=== PATIENT | female | born 2000 | race Caucasian/White ===

== ENCOUNTER 2023-06-14 15:45 | Outpatient (CLI) | payer OTHER, SELFPAY ==
--- NOTE | 2023-06-14 16:00 | CRLHL7_ITS ---
For Patients: As a result of the Cures Act, medical imaging exams and procedure reports are released immediately into your electronic medical record. You may view this report before your referring provider. If you have questions, please contact your health care provider. INDICATION: First trimester scan, establish dates. COMPARISON: None. TECHNIQUE: Real-time york-scale imaging of the pelvis was performed. FINDINGS: Sonographic imaging demonstrates a single living intrauterine gestation. The embryo demonstrates a regular cardiac rate measuring 173 beats per minute. The embryo`s crown-rump length measurement of 3.2 cm corresponds to a gestational age of 10 weeks 1 day with a sonographic due date of 01/09/2024. The yolk sac is not visualized. There are no gross abnormalities noted within the embryo at this early state of development. The gestational sac has a normal appearance. There is no evidence of a perigestational hemorrhage. The amount of fluid within the sac appears appropriate for gestational age. The cervix is closed. The myometrium appears normal. The ovaries are of normal size. There are no suspicious fluid collections noted in the cul-de-sac. IMPRESSION: Normal first trimester OB ultrasound exam. Gestational age calculated at 10 weeks 1 day with a sonographic due date of 01/09/2024. Dictated by Main Escalona MD @ 06/15/2023 9:20:32 AM (Electronically Signed)
== END 2023-06-14 15:46 | disposition home or self-care (01) ==
PROVIDERS: PCP Pediatrics; Visit Provider Registered Nurse
DX: Z34.91 Encounter for supervision of normal pregnancy, unspecified, first trimester (principal); Z3A.10 10 weeks gestation of pregnancy
CPT/HCPCS: 76817; 86592; 86703; 86704; 86706; 86762; 86787; 86803; 86850; 86900; 86901; 87086; 87340; 87491; 87591

== ENCOUNTER 2023-06-14 16:58 | Outpatient (CLI) | payer OTHER, SELFPAY ==
[2023-06-15 00:22] LABS: Chlamydia DNA Amplified* NOT DETECTED (No Detected); GC DNA Amplified* NOT DETECTED (No Detected)
== END 2023-06-14 16:59 | disposition home or self-care (01) ==
PROVIDERS: PCP Pediatrics; Visit Provider Registered Nurse
DX: Z34.91 Encounter for supervision of normal pregnancy, unspecified, first trimester (principal); Z3A.09 9 weeks gestation of pregnancy
CPT/HCPCS: 86592; 86703; 86704; 86706; 86762; 86787; 86803; 86850; 86900; 86901; 87086; 87340; 87491; 87591

== ENCOUNTER 2023-08-09 15:46 | Outpatient (CLI) | payer OTHER, SELFPAY | END 2023-08-09 15:47 | disposition home or self-care (01) | LOC: NFLDREF 15:48 | PROVIDERS: PCP Pediatrics; Visit Provider Advanced Practice Midwife | DX: Z34.92 Encounter for supervision of normal pregnancy, unspecified, second trimester (principal); Z3A.17 17 weeks gestation of pregnancy | CPT/HCPCS: 81511 ==

== ENCOUNTER 2023-08-30 11:06 | Outpatient (CLI) | payer OTHER, SELFPAY ==
--- NOTE | 2023-08-30 11:00 | US_ITS ---
Patient: CELE DIAZ Facility:?[facility] Patient ID:?[id number] Site Patient ID:?[id number]. Site :?[id number] Study:?US-OB Pelvis OB > 14wks-08/30/2023 12:47:59 PM Ordering Physician:Anastasiia Kidd Final Report: INDICATION: Evaluate anatomy. COMPARISON: Obstetric ultrasound on 06/15/2023 TECHNIQUE: Real time york scale imaging of the fetus was performed as well as color Doppler analysis of the umbilical vessels. FINDINGS: Sonographic imaging demonstrates a single living intrauterine gestation. Fetus demonstrates a regular cardiac rate of 144 beats per minute. Fetus has a cephalic presentation. The placenta lies posterior without evidence of placenta previa. Amniotic fluid volume appears normal. Single deepest vertical pocket: 4.9 cm. The cervix is closed and measures 4.2 cm in length. The composite ultrasound gestational age is calculated at 21 weeks and 4 days with an estimated sonographic due date of 01/06/2024. The estimated weight is 462 grams which lies at the 96 percentile The following biometric measurements were obtained: Biparietal diameter: 5.2 cm/21 weeks and 6 days 87% Head circumference: 18.5 cm/20 weeks and 6 days 45% Abdominal circumference: 17.8 cm/22 weeks and 5 days 94% Femur length: 3.6 cm/21 weeks and 2 days 61% The HC/AC ratio measures: 1.04 On anatomic survey, there is a normal appearance of the cerebral ventricles, cavum septi pellucidi, cisterna magna and cerebellum. The nose, lips, and facial profile appear normal. The cervical, thoracic and lumbar spine are well visualized and appear normal. There is a normal four-chamber heart view and the left and right ventricular outflow tracts appear normal. The diaphragm and stomach appear normal. The kidneys and bladder also appear normal. There is a normal three-vessel cord and cord insertion site. The four extremities appear normal. IMPRESSION: Normal OB ultrasound exam with estimated gestational age of 21 weeks and 4 days with estimated delivery date of 01/06/2024. No intrinsic abnormalities noted on anatomic survey. Dictated by Wilian Cordero MD @ 08/30/2023 5:43:08 PM Signed by:?Wilian Cordero MD @08/30/2023 5:43:08 PM (Electronic Signature)
== END 2023-08-30 11:07 | disposition home or self-care (01) ==
LOC: US 11:06
PROVIDERS: PCP Pediatrics; Visit Provider Advanced Practice Midwife
DX: Z34.92 Encounter for supervision of normal pregnancy, unspecified, second trimester (principal); Z3A.21 21 weeks gestation of pregnancy
CPT/HCPCS: 76805

== ENCOUNTER 2023-10-25 17:45 | Outpatient (CLI) | payer OTHER, SELFPAY | END 2023-10-25 17:46 | disposition home or self-care (01) | LOC: NFLDREF 11-10 04:01 | PROVIDERS: PCP Pediatrics; Referring Provider Pediatrics; Visit Provider Advanced Practice Midwife | DX: Z34.03 Encounter for supervision of normal first pregnancy, third trimester (principal) | CPT/HCPCS: 86592 ==

== ENCOUNTER 2023-12-05 14:35 | Outpatient (CLI) | payer OTHER, SELFPAY | END 2023-12-05 14:36 | disposition home or self-care (01) | LOC: NFLDREF 12-07 18:37 | PROVIDERS: PCP Pediatrics; Referring Provider Pediatrics; Visit Provider Advanced Practice Midwife | DX: Z34.93 Encounter for supervision of normal pregnancy, unspecified, third trimester (principal) | CPT/HCPCS: 82728 ==

== ENCOUNTER 2023-12-21 13:00 | Outpatient (RCR) | payer OTHER, SELFPAY ==
--- NOTE | 2023-12-08 11:11 | URNOTE ---
Prior auth is not required for Joshua ([id number]).Per [facility]
[2023-12-09] MEDS: SODIUM CHLORIDE 0.9 % (FLUSH) 10 ML SYRINGE IVF (13:30)
[2023-12-09] MEDS: 0.9 % SODIUM CHLORIDE 250 ml IV (13:30)
[2023-12-09 13:31] VITALS: BP 113/71; PULSE 97; RESP 16; TEMP 36.6; O2SAT 97
[2023-12-09] MEDS: IRON SUCROSE COMPLEX 200 MG in 0.9 % SODIUM CHLORIDE 100 ml 440 MG IVPB (13:57)
[2023-12-09 14:19] VITALS: BP 110/72; PULSE 85; RESP 14; TEMP 36.6; O2SAT 97
[2023-12-12] MEDS: SODIUM CHLORIDE 0.9 % (FLUSH) 10 ML SYRINGE IVF (09:10)
[2023-12-12] MEDS: 0.9 % SODIUM CHLORIDE 250 ml IV (09:10)
[2023-12-12] MEDS: IRON SUCROSE COMPLEX 200 MG in 0.9 % SODIUM CHLORIDE 100 ml 440 MG IVPB (09:10)
[2023-12-12 09:11] VITALS: BP 104/62; PULSE 94; RESP 18; TEMP 36.1; O2SAT 98
[2023-12-12 09:28] VITALS: BP 106/69; PULSE 100; RESP 16; O2SAT 97
[2023-12-12 09:57] VITALS: BP 103/66; PULSE 95; RESP 16; O2SAT 99
[2023-12-14] MEDS: SODIUM CHLORIDE 0.9 % (FLUSH) 10 ML SYRINGE IVF (08:59)
[2023-12-14] MEDS: 0.9 % SODIUM CHLORIDE 250 ml IV (08:59)
[2023-12-14] MEDS: IRON SUCROSE COMPLEX 200 MG in 0.9 % SODIUM CHLORIDE 100 ml 440 MG IVPB (08:59)
[2023-12-14 09:18] VITALS: BP 112/71; PULSE 85; RESP 16; O2SAT 96
[2023-12-14 09:52] VITALS: BP 125/73; PULSE 90; RESP 18; O2SAT 97
[2023-12-19 13:14] VITALS: BP 108/69; PULSE 78; RESP 16; TEMP 36.4; O2SAT 99
[2023-12-19] MEDS: IRON SUCROSE COMPLEX 200 MG in 0.9 % SODIUM CHLORIDE 100 ml 440 MG IVPB (13:34)
[2023-12-19] MEDS: 0.9 % SODIUM CHLORIDE 250 ml IV (13:35)
[2023-12-19 13:51] VITALS: BP 100/60; PULSE 84; RESP 16; TEMP 36.7; O2SAT 99
[2023-12-19 14:15] VITALS: BP 105/65; PULSE 72; RESP 16; TEMP 36.4; O2SAT 98
[2023-12-21 13:09] VITALS: BP 112/70; PULSE 78; TEMP 35.6; O2SAT 98
[2023-12-21] MEDS: IRON SUCROSE COMPLEX 200 MG in 0.9 % SODIUM CHLORIDE 100 ml 440 MG IVPB (13:40)
[2023-12-21] MEDS: 0.9 % SODIUM CHLORIDE 250 ml IV (13:40)
[2023-12-21 14:05] VITALS: BP 116/65; PULSE 76; RESP 16; O2SAT 96
[2023-12-21 14:40] VITALS: BP 110/63; PULSE 75; RESP 14; O2SAT 97
== END 2024-06-06 23:59 | disposition home or self-care (01) ==
LOC: CCIC 13:00
PROVIDERS: PCP Pediatrics; Referring Provider Pediatrics; Visit Provider Pediatrics
DX: D50.9 Iron deficiency anemia, unspecified (principal)
CPT/HCPCS: 87081; 87653; 96365; 96374; J1756; J7050

== ENCOUNTER 2023-12-31 20:18 | Inpatient (IN) | payer OTHER, SELFPAY ==
[2023-12-31] VITALS (67 sets, daily range): BP systolic 91–140; BP diastolic 49–79; PULSE 60–126; RESP 12; TEMP 36.8; O2SAT 93–100; BMI 34.5
--- NOTE | 2023-12-31 14:03 | W.PM.LDBA ---
Subjective History of Present Illness Narrative: Jennifer is a 23 yo at 38 2/7 weeks gestation being admitted to Labor and Delivery for spontaneous onset of labor. She reports she started having contractions last evening before bed. She was able to sleep some but they progressively got more uncomfortable throughout the night. She was able to try to rest and change positions to manage them at home. Then about lunch time they became more regular, about every 5 minutes apart. She denies any leaking of fluid or bleeding. She feels she is coping well a this time. She is supported in labor by her partner, Edgard. Her full history and physical was dictated by Katherine Eagle CNM on 12/27/2023. Please see this for details. Specific Issues/Plans G 1 P 0 Fiance: Edgard H&P done by Katherine Eagle CNM on 12/27/23 No OB problems Quad screening- normal Flu: Recommended, declined Covid: Recommended, declined TDAP: 11/21/2023 OB - Problem Based A/P Additional Plan (1) Pain during labor: Status: Acute (2) Spontaneous onset of labor: Status: Acute (3) 38 weeks gestation of : Status: Acute Plan ASSESSMENT:? 23 yo at 38 2/7 weeks gestation? complicated by:?none Labor type: Spontaneous, Early labor? Category 1 FHR pattern.?? Labor complicated by: none? GBS negative? ? PLAN:? 1. Routine intrapartum cares as ordered. Continue with expectant management? 2. Monitoring per policy, intermittent? 3. Planning epidural for pain management. Doesn't feel ready at this time. Candidate for analgesia of choice when desired.?? 4. Patient encouraged to reposition and ambulate to promote physiologic labor and .? 5. Anticipate ? Delivery/Labor/Induction Plan Plan: expectant management OB Exam Physical Exam Vital signs: Pulse BP Pulse Ox 100 117/76 98 12/31/23 13:18 12/31/23 13:18 12/31/23 13:19 Narrative: Vitals Reviewed Constitutional:? Alert and oriented x3 HEENT:? Normocephalic, atraumatic Neck:? Supple Lungs:? Clear to auscultation bilaterally Heart:? Regular rate and rhythm, no murmur, rub or gallop Abdomen:? Soft, nontender, and gravid. Vertex by Lyndon's, confirmed with cervical exam. Extremities:? No edema or erythema Cervix: 4 cm/80%/0 station/vertex NST: 130 bpm/moderate variability/15x15 accelerations/no decelerations/contractions every 3-5 minutes Detailed Labor and Delivery Exam Patient Gravid: Yes
[2023-12-31 14:27] LABS: Basophils Percent Auto 0.2 % (0.0-3.0); Eosinophils Percent Auto 0.2 % (0.0-7.0); Hematocrit 38.2 % (33.0-51.0); Hemoglobin* 12.1 gm/dL (12.0-16.0); Immature Granulocytes Pct Auto 2.5 %; Lymphocytes Percent Auto 9.5 % (20-44); Mean Corpuscular HGB Conc 32 gm/dL (32-36); Mean Corpuscular Hemoglobin 29 pg (26-34); Mean Corpuscular Volume 92 fL (80-100); Monocytes Percent Auto 6.7 % (0.0-11.0); Neutrophils Percent Auto 80.9 % (42.0-72.0); Platelet Count* 210 K/uL (140-440); RDW Coefficient of Variation % 17.2 % (11.5-15.5); Red Blood Count 4.16 m/uL (4.00-5.20); White Blood Count* 12.87 K/uL (4.50-11.00)
[2023-12-31 14:36] LABS: Slide Review Reflex No
[2023-12-31] MEDS: LACTATED RINGERS 1000 ML 1,000 ML 999 ML IV ×2 (15:30→16:40)
[2023-12-31] MEDS: ROPIVACAINE 0.2% 100 ml 100 ML 12 MG EPIDURAL (16:52)
[2023-12-31] MEDS: BUPIVACAINE 0.25% PF 10 ML 10 ML ML EPIDURAL (16:53)
--- NOTE | 2023-12-31 16:56 | P.ANBPRC_ITS ---
[facility] Social History What is your current living situation?: I presently have a place to live Problems where you live: no known problems In the past 12 months, utilities in danger of being shut off: no In past 12 months, lack of transportation kept you from medical appts, meetings, work, or getting things needed for daily living: no In the past 12 mos, have been you worried that your food would run out before you had money to buy more?: never true In the past 12 mos, the food you bought just didn't last and you didn't have money to buy more?: never true Smoking Status: Never smoker How often does anyone, including family, friends and others, physically hurt you : never How often does anyone, including family, friends and others, insult or talk down to you: never How often does anyone, including family, friends and others, threaten you with harm: never How often does anyone, including family, friends and others, scream or curse at you: never Little interest or pleasure in doing things: not at all Feeling down, depressed, or hopeless: not at all Meds Home Medications and Allergies Home Medications ?Medication ?Instructions ?Recorded ?Confirmed ?Type docosahexaenoic acid 200 mg 200 mg PO DAILY 06/14/23 12/31/23 History capsule ( DHA) magnesium 250 mg tablet 250 mg PO QDAY 10/25/23 12/31/23 History psyllium husk 0.52 gram capsule 0.52 g PO ONCE 10/25/23 12/31/23 History (Natural Fiber Laxative) ferrous sulfate 325 mg (65 mg 325 mg PO QDAY 11/21/23 12/31/23 History iron) tablet (FeroSul) Allergies Allergy/AdvReac Type Severity Reaction Status Date / Time pineapple Allergy Intermediate Verified 12/31/23 13:29 shrimp Allergy Intermediate Vomiting Verified 12/27/23 16:35 Results Labs Labs: Laboratory Results - last 24 hr 12/31/23 14:21 WBC 12.87 H RBC 4.16 Hgb 12.1 Hct 38.2 MCV 92 MCH 29 MCHC 32 RDW Coeff of Uzair 17.2 H Plt Count 210 Neut % (Auto) 80.9 H Lymph % (Auto) 9.5 L [place] % (Auto) 6.7 Eos % (Auto) 0.2 Baso % (Auto) 0.2 Neut # (Auto) 10.40 H Lymph # (Auto) 1.20 [place] # (Auto) 0.90 Eos # (Auto) 0.00 Baso # (Auto) 0.00 Abs Immat Gran (auto) 0.30 Imm/Tot Granulo (auto) 2.5 Vital Signs Vital Signs: Last Vital Signs Pulse 82 12/31/23 16:56 BP 122/65 12/31/23 16:56 Pulse Ox 98 12/31/23 16:44 Weight: 91.263 kg Height: 162.56 cm Anesthesia Procedures Epidural Insertion Patient Location: OB Start Time: 16:05 Stop Time: 17:05 Start Date: 12/31/23 Stop Date: 12/31/23 Reason for Block: procedure for pain Patient Position: sitting Performed By: [place] Preanesthetic Checklist: IV checked, risks and benefits discussed, surgical consent, monitors and equipment checked, pre-op evaluation, timeout performed and anesthesia consent Prep: chlorhexidine gluconate Monitoring: blood pressure monitoring, continuous pulse oximetry and heart rate Approach: midline Vertebral Space: lumbar (1-5) Epidural Technique: EVER saline Needle Type: Tuohy needle Injection Technique: continuous catheter Needle gauge: 17 Needle Length (cm): 10 cm Needle Insertion Depth (cm): 6 Catheter Gauge: 19 Catheter Type: multi-orifice Catheter at skin depth (cm): 12 Test Dose Result: negative and lidocaine 1.5% with epinephrine 1 to 200,000
--- NOTE | 2023-12-31 20:33 | P.OBPN_ITS ---
Subjective Time Seen by Provider: 18:15 Date Seen: 12/31/23 Narrative: Jennifer is a 23 yo G1 at 38 2/7 weeks gestation that presented in spontaneous labor. She is supported in labor by her partner, Edgard. She did the labor warm- up before requesting an epidural. She is now comfortable and has been able to rest some. She has had some bloody show but no leaking of fluid. Objective Exam: Objective: Constitutional: Alert and oriented x3, no distress, coping well Vital signs stable, see nurse documentation Abdomen: gravid, contractions palpate moderate/strong with contractions and soft between Cervix: 5.5 cm/80%/0 station/vertex per RN NST: 125 bpm/moderate variability/15x15 accelerations/no decelerations/contractions every 3-5 minutes Vital Signs: Last Vital Signs Temp 98.2 F 12/31/23 19:20 Pulse 81 12/31/23 20:18 Resp 12 12/31/23 19:20 BP 113/63 12/31/23 20:18 Pulse Ox 97 12/31/23 19:19 Plan Plan: ASSESSMENT:? 23 yo at 38 2/7 weeks gestation? complicated by:?none Labor type: Spontaneous, Active labor? Category 1 FHR pattern.?? Labor complicated by: none? GBS negative? ? PLAN:? 1. Routine intrapartum cares as ordered. Continue with expectant management? 2. Monitoring per policy, intermittent? 3. Continue with epidural for pain management.?? 4. Patient encouraged to reposition to promote physiologic labor and .? 5. Anticipate ?
[2023-12-31] MEDS: LACTATED RINGERS 1000 ML 1,000 ML 125 ML IV (21:11)
[2023-12-31] MEDS: ONDANSETRON 2 MG/ML inj 4 MG IV (22:04)
--- NOTE | 2023-12-31 23:28 | W.PM.OBVAGDE ---
OB Procedure Vag Delivery Mother Details Mother Details: Jennifer is a 23 year-old, 1, now Para 0, admitted on 12/31/23 at 38.2 weeks gestation. : 1 Para: 1 Weeks Gestation: 38.2 Admission Date: 12/31/23 Additional Details Amniotic Membrane Status: SROM Amniotic Membrane Rupture Date: 12/31/23 Amniotic Membrane Rupture Time: 21:32 Amniotic Membrane Fluid Description: Meconium Stained Analgesia/Anesthesia Type: Epidural Waterbirth: No Pitcoin: No (Declined AMTSL) Intrapartal Events: None Labor Onset: 17:30 Complete: 21:32 Pushin:35 Heart: heart tones during second stage were category II with slow return to baseline with guided breathing and position changes. Delivery Details Delivery Date: 12/31/23 Delivery Time: 22:51 Route of delivery: Infant Gender: Female Infant Viability: Alive; Heart Rate Present Position at Delivery: OA Delivery Details: Patient was admitted for spontaneous onset of labor and progressed normally. She received an epidural for pain management. SROM occurred at 2131 with what appear to be clear/blood tinged fluid. Patient was complete at 2132 and pushing at 2135. of a viable female at 2251 in left tilt/semi reclined position on the bed. Vertex delivered OA. No nuchal cord or shoulder. Body delivered easily and without incident. Meconium noted at delivery. passed to mothers abdomen with a vigorous cry. Cord was clamped and cut at > 5 minutes. APGARS were 8 at one minute and 9 at five minutes respectively. Mouth was bulb suctioned. Intact placenta with a 3 vessel cord delivered spontaneously at 2303. Placenta was noted to be circumvallate. Fundus firm. Patient declines pitocin unless necessary. Not given at this time. Vaginal 2nd degree identified and repaired in typical fashion. QBL 200 cc. Bladder was drained with I&O catheter for 125. Mother and baby stable; mother plans to breastfeed. weight pending. 1 Minute Interval Total Score: 8 5 Minute Interval Total Score: 9 Additional Details Shoulder Dystocia: No Placenta Delivery Time: 23:03 Placental Delivery Description: Spontaneous Delivery repair: Vicryl Procedure Done: Global Blood Loss: 200 Laceration: Vaginal - 2nd Degree Blood Loss Measurement Type: QBL Bakri Used: No Sponge/Need Count Correct: Yes Cord Vessel Description: 3 Vessels Event Summary Status: Mother and were stable after delivery. Disposition: floor
[2023-12-31] MEDS: IBUPROFEN 600 MG TABLET PO (23:58)
[2024-01-01] VITALS (12 sets, daily range): BP systolic 97–118; BP diastolic 52–67; PULSE 78–96; RESP 16–18; TEMP 36.5–37; O2SAT 96–98
[2024-01-01] MEDS: ACETAMINOPHEN 500 MG TABLET 1000 MG PO ×3 (04:28→20:28)
--- NOTE | 2024-01-01 06:09 | PM.ANPOST ---
Post Anesthesia Note Post Anesthesia Note Patient seen: Inpatient Respiratory Status: adequate Cardiovascular Status: adequate Mental Status: baseline Pain: adequate Temp: baseline Anesthetic awareness: N/A Complications: none Follow care: none
[2024-01-01 06:47] LABS: Hemoglobin* 10.3 gm/dL (12.0-16.0)
[2024-01-01] MEDS: IBUPROFEN 600 MG TABLET PO ×2 (08:20→16:13)
[2024-01-01] MEDS: DOCUSATE SODIUM 100 MG CAPSULE PO (08:21)
--- NOTE | 2024-01-01 08:36 | P.OBPN_ITS ---
OB - PN:Subj Subjective Date Seen: 01/01/24 Interval history: Jennifer is a 23 y.o. who was admitted to L & D for active labor. ?She had an uncomplicated NVD.?The patient feels well. ?The pain is well controlled with current medications. ?She has no new complaints. ?She is breast feeding and reports things are in progress. She has been working on the latch. Baby seems a bit disorganized with her tongue.? the patient has done well.? Vitals have been stable.? She has remained afebrile.? Has a good appetite, is tolerating a general diet. ?She is voiding without difficulty.? She is passing gas and has not had a bowel movement.? She is ambulating and denies any dizziness.? Has Small amount of rubra lochia. ? OB - PN: Obj Exam Physical Exam: Vital signs: Temp Pulse Resp BP Pulse Ox 98.2 F 82 18 118/67 98 01/01/24 07:20 01/01/24 07:20 01/01/24 07:20 01/01/24 07:20 12/31/23 22:50 Narrative: GENERAL APPEARANCE:? normal affect, alert, no distress MOOD:? appropriate CHEST:? clear to auscultation HEART:? regular rate and rhythm ABDOMEN:? soft, non-tender the uterine fundus is At Umbilicus, Midline and is appropriate for the stage of recovery. PERINEUM:? mild edema of the perineum, there is a Perineal Laceration,? that is healing well. EXTREMITIES:? normal and minimal edema OB - PN: Obj Data Labs Labs: Laboratory Results - last 24 hr 12/31/23 01/01/24 14:21 06:24 WBC 12.87 H RBC 4.16 Hgb 12.1 10.3 L Hct 38.2 MCV 92 MCH 29 MCHC 32 RDW Coeff of Uzair 17.2 H Plt Count 210 Neut % (Auto) 80.9 H Lymph % (Auto) 9.5 L [place] % (Auto) 6.7 Eos % (Auto) 0.2 Baso % (Auto) 0.2 Neut # (Auto) 10.40 H Lymph # (Auto) 1.20 [place] # (Auto) 0.90 Eos # (Auto) 0.00 Baso # (Auto) 0.00 Abs Immat Gran (auto) 0.30 Imm/Tot Granulo (auto) 2.5 OB - PN: A/P Delivery Assessment and Plan (1) care and examination of lactating mother: Status: Acute (2) (normal spontaneous vaginal delivery): Status: Acute Plan plan:? Discharge home with baby 01/02/2024.? Hydration, nourishment encouraged.? , may see if needed and continued support from nursing I reviewed with her this morning effective latch signs with demonstration, duration of feedings, positioning, cluster-feeding. ? Hgb 10.3. ? ? Labs WNL or stable with trending? Plan Plan: routine care
--- NOTE | 2024-01-02 07:30 | P.DS_ITS ---
DS: Providers Provider Date Seen: 01/02/24 Date of admission: 12/31/23 20:18 Primary care physician: Mariam Brown MD Admitting Clinician: Corina Khan CNM Attending Physician on discharge: Corina Khan CNM Date of Discharge: 01/02/24 DS: Diagnosis Discharge Diagnosis (1) (normal spontaneous vaginal delivery): Status: Acute (2) care and examination of lactating mother: Status: Acute Exam Narrative: Exam Narrative: GENERAL APPEARANCE:? normal affect, alert, no distress? MOOD:? appropriate? CHEST:? clear to auscultation and percussion? HEART:? regular rate and rhythm? ABDOMEN:? soft, non-tender the uterine fundus is U/2 and is appropriate for the stage of recovery.? PERINEUM:? mild edema of the perineum, there is a 2nd degree vaginal laceration that is healing well.? EXTREMITIES:? normal and no edema? Const: Vital Signs, click to edit/add: Vital Signs - 24 hr 01/01/24 16:17 01/01/24 20:26 01/01/24 23:35 Temperature 97.7 F 98.6 F 98.2 F Pulse Rate [Blood Pressure Cuff] 82 82 78 Respiratory Rate 17 16 16 Blood Pressure [Le ft Arm] 107/65 107/66 113/67 Pulse Oximetry 96 98 97 Oxygen Delivery Me thod Room Air Room Air Room Air Documenting provider has reviewed patient's vital signs: yes OB - DS: Summary Hospital Course Hospital Course: Jennifer is a 23 year old G 1 P 1 at 38.2 weeks gestation that was admitted to the Center on 12/31/23 for labor. She had an uncomplicated vaginal delivery. She delivered a viable female . She is breast feeding and is working on latch. Encouraged her to use for help. the patient has done well. She is planning on NFP and condoms/diaphragm for contraception. Peripartum Data Infant delivery method: Vaginal Laceration description: Vaginal - 2nd Degree Episiotomy description: None complications: none [place] Infant Gender: Female Discharge Plan: Home Status at Discharge Functional status at discharge: independent ambulation Overall status at discharge: patient is progressing back to baseline Time Spent with Patient Time attestation: Total time spent providing and/or coordinating discharge services: Discharge Plan Discharge Disposition: Home, Self-Care Date of Admission: 12/31/23 20:18 Attending Provider on Discharge: Anastasiia Melo Primary Care Provider: Mariam Brown Condition: Stable Anticipated Discharge Date/Time: 01/02/24 10:00 Discharge Medications: New docusate sodium 100 mg Capsule 100 mg PO DAILY Qty: 90 0RF Rx Instructions: Take 1-2 tablets daily as needed for constipation. ibuprofen 600 mg Tablet 600 mg PO Q6H PRNQty: 30 0RF Continued DHA 200 mg capsule 200 mg PO DAILY Rx Instructions: liquid - takes 1 T per day ferrous sulfate [FeroSul] 325 mg (65 mg iron) tablet 325 mg PO QDAY psyllium husk [Natural Fiber Laxative] 0.52 gram capsule 0.52 g PO ONCE magnesium 250 mg tablet 250 mg PO QDAY Discharge Orders: Discharge Order (Routine); Ordered 01/02/24 Ordered By: Anastasiia Melo Consulting provider completed their portion of the discharge: Yes Patient Education: OB Vaginal/Breast Feeding Additional Instructions: Discharge instructions were reviewed with the patient including signs and symptoms of infection and home going medications.? Lifting Restrictions: 20 pounds for 6? weeks? ?? Do not drive while taking narcotic pain meds.? Off Work or School for 6 weeks.? ?? Symptoms to report to doctor:? -Bleeding that saturates more than one pad per hour? -Passing clots larger than the size of a golf ball? -Pain not relieved by prescribed medication? -Fever above 100.4 degrees Fahrenheit? -A foul vaginal odor? -Difficulty in emotions, mood and functions? -Thoughts of hurting yourself and/or ? -Painful, reddened area in your breast? -Any drainage, redness or tenderness in your IV/epidural site? -Severe headache that doesn't improve after taking medications? -Changes in vision, including temporary loss of vision, blurred vision, and/or light sensitivity? -Upper abdominal pain (usually under ribs on the right side)? -Decrease in urination or painful, frequent urinating? -Chest pain? -Shortness of breath? -Tenderness or pain with redness and/swelling in the calf(s) of your leg? ?? Follow Up in clinic in 2 and 6 weeks.? ?? consultation services are available to all mothers and babies for the first year after delivery.? To make an appointment, please call [phone].? Activity Level: Activity as Tolerated Discharge Diet: Regular Follow Up Appointments: [facility] [Provider Group] Forms: MyHealth Info Instructions
[2024-01-02] MEDS: IBUPROFEN 600 MG TABLET PO (08:30)
[2024-01-02] MEDS: DOCUSATE SODIUM 100 MG CAPSULE PO (08:30)
[2024-01-02 08:31] VITALS: BP 113/70; PULSE 85; RESP 16; TEMP 36.8; O2SAT 96
[2024-01-04 04:30] LABS: Rapid Plasma Reagin (RPR) Non Reactive (Non Reactive)
== END 2024-01-02 11:41 | disposition home or self-care (01) | DRG 807 ==
LOC: OB OUT 20:19 → OB 20:19
PROVIDERS: Admitting Provider Advanced Practice Midwife; PCP Pediatrics; Visit Provider Advanced Practice Midwife
DX: O70.1 Second degree perineal laceration during delivery (principal); Z37.0 Single live birth; Z3A.38 38 weeks gestation of pregnancy; O77.0 Labor and delivery complicated by meconium in amniotic fluid
CPT/HCPCS: 01967; 36415; 85018; 85025; 86592; G0463; A9270; J0665; J2371; J2405; J2795; J7120

== ENCOUNTER 2024-01-19 14:29 | Outpatient (CLI) | payer OTHER, SELFPAY ==
--- NOTE | 2024-01-19 16:58 | W.PM.LAC.MC ---
Consult Note - Mom Date of Visit Date of visit: 01/19/24 loss prevention consultant: Tiesha Spencer Visit Code: Visit Patient's Information Phone number: [phone] : 1 Para: 1 Allergies pineapple Allergy (Intermediate, Verified 01/18/24 11:30) shrimp Allergy (Intermediate, Verified 01/18/24 11:30) Vomiting Mother's Medical History: Medical History (Updated 01/18/24 @ 12:08 by Corina Khan CNM) (normal spontaneous vaginal delivery) ?O80 - Encounter for full-term uncomplicated delivery (ICD-10) Work Plans: return to work mid-March Delivery Information Delivery type: Vaginal Weeks Gestation: 38+2 Gestational Age: AGA Weight: 3.525 kg Discharge Weight: 3.318 kg Baby's Information Medications: Vit D drops Baby's Age at Visit: 19d Baby's Provider or Clinic: [facility] Jaundice: No Reason for Consult Reason for Consult: slow weight gain, question low milk supply or poor transfer Past Experience Past Experience: No Current Frequency of Day Feedings: every 3 hours Frequency of Night Feedings: every 3 hours Both Breasts: Yes Suck: strong on right, moderate on left Latch: slightly shallow, Length of Time: 20 min both sides Goals: minimum of 6 months Pumping Pumping: Yes (just a few times) Quantity Pumped: few drops on left side, less than 1 oz on right Supplementing EMB Supplement: No Formula Supplement: No Baby Elimination Number of Wet Diapers a Day: 6+ Number of BM a Day: 6-8 poops, yellow/seedy Breast/Nipple Condition Engorgement: No Maternal Nipple Condition - Left: Common Nipple Maternal Nipple Condition - Right: Common Nipple Sore Nipples: Yes (right very painful, pinched appearance when baby comes off) Interventions for Sore Nipples: Lansinoh, Soothies and Expressed Breast Milk Onsite Pre-Feed weight: 3.356 kg Post-Feed weight: 3.378 kg Milk Transferred (mL): 22 Pre-Nursing Left Nipple: Within Normal Limits Pre-Nursing Right Nipple: Redness Post-Nursing Left Nipple: Within Normal Limits Post-Nursing Right Nipple: Redness Assessments/Interventions Assessments/Interventions: Breastfeed 10-15 min ea breast, listen for active swallowing. No more than 15 minutes to conserve energy. Work on wide, deep latch using asymmetric latch technique for increased milk transfer for baby and comfort for mom. Use nipple shield for mom's comfort on right side as she is to the point of dreading the feeding due to pain. Pump both breasts for 15-20 min after feeding for about the next week or so to build supply back up and have a little ?stash? as desired in the freezer, a full 20 minutes if pumping instead of . Consider one Power Hour pump 1x/day if able. Offer baby EBM after . Given milk transfer here, expect at least 2 oz/feeding. Use formula if needed to supplement Expect to feed every 2-3 hours, cluster feedings every hour are expected especially in the evening Try skin to skin to increase milk production May try galactagogues to increase milk supply. List given Follow up here in 5 days to evaluate progress. Need to determine if this is a milk supply issue, a poor transfer issue, or a little bit of both. Call with questions/concerns and follow up as needed Time spent reviewing records as well as face to face time with mom and baby: 80 minutes Meds Home Medications and Allergies Home Medications ?Medication ?Instructions ?Recorded ?Confirmed ?Type psyllium husk 0.52 gram capsule 0.52 g PO ONCE 10/25/23 01/18/24 History (Natural Fiber Laxative) ferrous sulfate 325 mg (65 mg 325 mg PO QDAY 11/21/23 01/18/24 History iron) tablet (FeroSul) Allergies Allergy/AdvReac Type Severity Reaction Status Date / Time pineapple Allergy Intermediate Verified 01/18/24 11:30 shrimp Allergy Intermediate Vomiting Verified 01/18/24 11:30
== END 2024-01-19 14:30 | disposition home or self-care (01) ==
PROVIDERS: PCP Pediatrics; Visit Provider Obstetrics & Gynecology
DX: Z39.1 Encounter for care and examination of lactating mother (principal)
CPT/HCPCS: G0463

== ENCOUNTER 2025-03-19 13:46 | Outpatient (CLI) | payer BC, SELFPAY ==
--- NOTE | 2025-03-19 13:45 | CRLHL7_ITS ---
For Patients: As a result of the Cures Act, medical imaging exams and procedure reports are released immediately into your electronic medical record. You may view this report before your referring provider. If you have questions, please contact your health care provider. OB ULTRASOUND FIRST TRIMESTER, TRANSVAGINAL INDICATION: Dating and viability. TECHNIQUE: Real time [place] scale imaging of the fetus was performed. Transvaginal imaging performed. LMP: 02/02/2025. DAVID by LMP: . GA: 9 w, 2 d. Previous US: No. CRL: 2.8 cm. 9 w 4 d. DAVID: 10/18/2025. FHR: 176 BPM. Gestational sac: 3.6 cm. Appears within normal limits. Yolk sac: 2.9 mm. Appears within normal limits. Right ovary: Within normal limits. 1.8 x 2.5 x 2.5 cm. Left ovary: Within normal limits. 3.6 x 1.7 x 3.6 cm. CL. IMPRESSION: 1. Single living intrauterine measures 9 weeks 4 days with sonographic due date 10/18/2025. 2. Subchorionic hemorrhage measures 2.0 x 2.1 x 0.6 cm. Main Escalona M.D. Diagnostic Radiologist [email or web address] SP/Dictated by: Main Escalona MD @ 03/19/2025 4:10:00 PM (Electronically Signed)
== END 2025-03-19 13:47 | disposition home or self-care (01) ==
PROVIDERS: PCP Pediatrics; Visit Provider Advanced Practice Midwife
DX: O20.9 Hemorrhage in early pregnancy, unspecified (principal); Z3A.09 9 weeks gestation of pregnancy
CPT/HCPCS: 76817; 83021; 86703; 86706; 86803; 86850; 87086; 87340

== ENCOUNTER 2025-03-19 14:44 | Outpatient (CLI) | payer BC, SELFPAY | END 2025-03-19 14:45 | disposition home or self-care (01) | PROVIDERS: PCP Pediatrics; Visit Provider Advanced Practice Midwife | DX: Z34.91 Encounter for supervision of normal pregnancy, unspecified, first trimester (principal) | CPT/HCPCS: 83020; 83021; 85660; 86592; 86703; 86704; 86706; 86762; 86787; 86803; 86850; 87086; 87340 ==